=== PATIENT | female | born 1980 | race Caucasian/White ===

== ENCOUNTER 2019-10-06 20:17 | Observation (INO) | payer MEDICAID ==
[~2019-10-06] VITALS: Ht 149.9 cm; Wt 58.1 kg
[2019-10-07] MEDS ORDERED: PREN-182 MT (00:15)
== END 2019-10-07 00:35 | disposition home or self-care (01) ==
LOC: UNDOADMIN 20:17 → INTOOBSV 20:17 → 8 EST LDRP 20:17
PROVIDERS: ADMIT Specialist; ATTEND Specialist
DX: O26.893 Other specified pregnancy related conditions, third trimester (principal); O99.89 Other specified diseases and conditions complicating pregnancy, childbirth and the puerperium; R10.9 Unspecified abdominal pain; M54.5 Low back pain; Z3A.38 38 weeks gestation of pregnancy
CPT/HCPCS: 59025; G0378; 99281